=== PATIENT | male | born 1960 | race Two or more races ===

== ENCOUNTER 2024-08-08 09:52 | Inpatient (IN) | payer OTHER ==
[2024-08-08 10:11] VITALS: BMI 23.9
[2024-08-08] MEDS ORDERED: hydrOXYzine PAMOATE 25 MG CAPSULE (FP) PO PRN (10:46)
[2024-08-08] MEDS ORDERED: METHOCARBAMOL 500 MG TABLET PO PRN (10:46)
[2024-08-08] MEDS ORDERED: ACETAMINOPHEN 325 MG TABLET (FP) PO PRN (10:46)
[2024-08-08] MEDS ORDERED: BENZONATATE 200 MG CAPSULE PO PRN (10:46)
[2024-08-08] MEDS ORDERED: DICYCLOMINE HCL 10 MG CAPSULE PO PRN (10:46)
[2024-08-08] MEDS ORDERED: NALOXONE (NARCAN) HCL 4 MG/0.1 ML SPRAY NS PRN (10:46)
[2024-08-08] MEDS ORDERED: MAGNESIUM HYDROX 2400MG/30ML ORAL SUSPENSION 30 ML CUP PO PRN (10:46)
[2024-08-08] MEDS ORDERED: IBUPROFEN 400 MG TABLET (FP) PO PRN (10:46)
[2024-08-08] MEDS ORDERED: IBUPROFEN 600 MG TABLET (FP) PO PRN (10:46)
[2024-08-08] MEDS ORDERED: BENZOCAINE/MENTHOL (CHLORASEPTIC ) LOZENGE MM PRN (10:46)
[2024-08-08] MEDS ORDERED: POLYETHYLENE GLYCOL (HEALTHYLAX) 3350 17 GM PACKET PO PRN (10:46)
[2024-08-08] MEDS ORDERED: MAG HYDROX/AL HYDROX/SIMETH 30 ML UNIT-DOSE CUP PO PRN (10:46)
[2024-08-08] MEDS ORDERED: LOPERAMIDE HCL 2 MG CAPSULE PO PRN (10:46)
[2024-08-08] MEDS ORDERED: diazePAM 5 MG TABLET PO PRN (10:46)
[2024-08-08] MEDS ORDERED: BISMUTH SUBSALICYLATE 262 MG/15 ML BTL PO PRN (10:46)
[2024-08-08] MEDS ORDERED: guaiFENesin 600 MG TABLET.ER (FP) PO PRN (10:46)
[2024-08-08] MEDS ORDERED: NICOTINE 14 MG/24 HOURS TOPICAL PATCH TD ONE (11:32)
[2024-08-08] MEDS ORDERED: PRENATAL VITAMINS W/ FOLIC ACID TABLET (FP) PO ONE (11:33)
[2024-08-08] MEDS: PRENATAL VITAMINS W/ FOLIC ACID TABLET (FP) PO SCH (11:34)
[2024-08-08] MEDS: NICOTINE 14 MG/24 HOURS TOPICAL PATCH TD SCH (11:34)
[2024-08-08] MEDS: ONDANSETRON *ODT* 4 MG TABLET SL PRN (14:50)
[2024-08-08] MEDS ORDERED: TRIMETHOBENZAMIDE HCL 200MG/2ML INJ IM PRN (15:04)
[2024-08-08] MEDS: diazePAM 5 MG TABLET PO SCH (18:00)
[2024-08-08] MEDS: THIAMINE 100 MG TABLET PO SCH (22:56)
[2024-08-08] MEDS: MELATONIN 5 MG TABLETS PO SCH (22:56)
[2024-08-09] MEDS: FLU VACCINE (FLULAVAL) PF 45 MCG/0.5 ML SYRINGE 2024-2025 IM ONE (11:27)
[2024-08-09 12:11] LABS: HEMATOCRIT 32.1 % (35.4-49); HEMOGLOBIN 10.4 GM/dL (11.7-16.9); MCHC 32.5 g/dl (32.0-35.9); MEAN CELL VOLUME 98.6 fl (80-96); MEAN PLT VOLUME 8.3 fl (7.5-11.1); PLATELET COUNT 389 10^3/uL (134-434); RBC 3.25 M/mm3 (4.00-5.60); RDW 14.8 % (11.9-15.9); WHITE BLOOD COUNT 5.3 K/mm3 (4.0-10.0)
[2024-08-09 12:25] LABS: POTASSIUM 4.6 mmol/L (3.5-5.1)
[2024-08-09 12:28] LABS: ALBUMIN 3.1 g/dl (3.4-5.0); BLOOD UREA NITROGEN 16.9 mg/dL (7-18); CALCIUM 8.5 mg/dL (8.5-10.1)
[2024-08-09 12:31] LABS: CREATININE 0.9 mg/dL (0.55-1.3)
[2024-08-09 12:34] LABS: BILIRUBIN,TOTAL 0.6 mg/dL (0.2-1); TOT PROT 6.1 g/dl (6.4-8.2)
[2024-08-10] MEDS: diazePAM 5 MG TABLET PO SCH (06:33)
[2024-08-10 06:48] VITALS: PULSE 64
[2024-08-10 09:01] VITALS: BP 117/79; RESP 18; TEMP 96.9
[2024-08-11] MEDS ORDERED: diazePAM 5 MG TABLET PO SCH (06:00)
[2024-08-12] MEDS ORDERED: diazePAM 5 MG TABLET PO ONE (06:00)
== END 2024-08-10 11:50 | disposition left against medical advice (07) | DRG 770 ==
LOC: YASAS 09:52 → Y6N 11:26
PROVIDERS: ADMIT Allergy & Immunology; ATTEND Allergy & Immunology
PROC: HZ2ZZZZ Detoxification Services for Substance Abuse Treatment (ICD-10-PCS; principal; 2024-08-08)
DX: F10.230 Alcohol dependence with withdrawal, uncomplicated (principal); F14.10 Cocaine abuse, uncomplicated; F17.210 Nicotine dependence, cigarettes, uncomplicated; I10 Essential (primary) hypertension; Z59.02 Unsheltered homelessness; Z88.0 Allergy status to penicillin; Z88.6 Allergy status to analgesic agent
CPT/HCPCS: 36415; 80053; 80305; 80307; 85027; 86780; 90656; 93005; 93010; G0008; Q0162